=== PATIENT | female | born 1975 | race African-American/Black ===

== ENCOUNTER → 2019-07-15 | Outpatient (CLI) | payer BC ==
[2019-07-15 12:20] LABS: BASOPHILS % 1.3 % (0.0-2.0); EOSINOPHILS % 1.1 % (0.0-5.0); HEMATOCRIT. 42.9 % (36.0-48.0); LYMPHOCYTES % 32.1 % (20.0-50.0); MEAN CORPUSCULAR HEMOGLOBIN 30.4 pg (28.0-32.0); MEAN CORPUSCULAR VOLUME 93.4 fL (81.0-99.0); MEAN PLATELET VOLUME 7.8 fl (7.4-10.4); MONOCYTES % 8.5 % (2.0-8.0); PLATELET 299 x1000/uL (130-400); RED BLOOD CELL COUNT 4.59 mill/uL (4.2-5.4); RED CELL DISTRIBUTION WIDTH 13.5 % (11.6-14.6)
[2019-07-15 12:29] LABS: CHLORIDE 106 mEq/L (98-107)
[2019-07-15 12:37] LABS: HDL CHOLESTEROL 60 mg/dL (40-59); LDL CHOLESTEROL 84 mg/dL (5-100)
[2019-07-15 12:38] LABS: T4 FREE 0.85 ng/dL (0.76-1.46)
== END | disposition home or self-care (01) ==
LOC: MRI 10:10
PROVIDERS: ATTEND Internal Medicine
DX: M17.12 Unilateral primary osteoarthritis, left knee (principal); M25.462 Effusion, left knee
CPT/HCPCS: 36415; 73560; 73721; 80061; 83036; 84439; 84443